=== PATIENT | female | born 1935 | race Caucasian/White ===

== ENCOUNTER 2021-11-06 10:07 | Outpatient (CLI) | payer MEDICARE, SELFPAY ==
[2021-11-06 17:29] LABS: Chloride* 100 mmol/L (96-114); Sodium* 137 mmol/L (135-149)
[2021-11-06 17:32] LABS: Blood Urea Nitrogen* 12 mg/dL (7-30); Carbon Dioxide* 29 mmol/L (20-32); Creatinine* 0.7 mg/dL (0.5-1.5); Estimated Glomerular Filt Rate 86 ml/min
[2021-11-06 17:33] LABS: Glucose* 83 mg/dL (60-115)
== END 2021-11-06 10:08 | disposition home or self-care (01) ==
LOC: LONREF 10:34
PROVIDERS: PCP Family Medicine; Visit Provider Family Medicine
DX: Z01.818 Encounter for other preprocedural examination (principal)
CPT/HCPCS: 80048

== ENCOUNTER 2023-08-19 08:31 | Outpatient (CLI) | payer MEDICARE, BC, SELFPAY | END 2023-08-19 08:32 | disposition home or self-care (01) | LOC: NFLDREF 09-03 11:11 | PROVIDERS: PCP Internal Medicine; Referring Provider Internal Medicine; Visit Provider Internal Medicine | DX: E11.9 Type 2 diabetes mellitus without complications (principal); E78.5 Hyperlipidemia, unspecified; Z79.84 Long term (current) use of oral hypoglycemic drugs | CPT/HCPCS: 80053; 80061; 82043; 82570 ==

== ENCOUNTER 2023-08-28 08:27 | Outpatient (CLI) | payer MEDICARE, BC, SELFPAY | END 2023-08-28 08:28 | disposition home or self-care (01) | LOC: NFLDREF 09-17 10:33 | PROVIDERS: PCP Internal Medicine; Referring Provider Internal Medicine; Visit Provider Internal Medicine | DX: E11.9 Type 2 diabetes mellitus without complications (principal) | CPT/HCPCS: 82043; 82570 ==

== ENCOUNTER 2024-05-11 14:00 | Outpatient (RCR) | payer MEDICARE, BC, SELFPAY ==
--- NOTE | 2023-02-20 16:48 | OT.OPLE ---
OT Outpatient Lymphedema Eval OT Outpatient Lymphedema Eval Start: 02/20/23 10:07 Freq: Status: Active Protocol: Document 02/20/23 13:32 LCN (Rec: 02/20/23 13:54 LCN [id number]) E-signed By Nieves Caballero, OTR/L, CLT OT Outpatient Evaluation Details Type Type Eval Complexity Low OT OP Lymphedema Evaluation Insurance Information Insurance Information Medicare B Current Condition/Medical Diagnosis Referring Provider Dr. Alanna Amaya Treatment Diagnosis Venous Insufficency, B LE lymphedema. Date Of Onset 01/29/23 Other Precautions Has several allergies--avocado , ibuprofen, clavulanic acid, lorazepam, PCN and sulfa abx. Possible latex sensitivity. 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 Both treated with ABX ( October 3 shots, rocephin; just finished 10 day oral course). She is still having deep red color, mild healing warmth from R ankle fold to 2 cm below knee crease. Has open anterior weiner 15 cm wide x 22 cm high area with serous sanguineous drainage that drains into her shoe and is hard to manage. She has done several failed trials of OTC compression stockings ( knee high, zipper stocking both dig in and top margin/trap edema with hard red ring, a compression device off of [facility] that positioned her is a hard 90 degree ankle position) and is living alone with back pain, limiting her ablility to yennifer shoes/socks. Medical History Medical History Obesity,Cellulitis/Infection, Slow Healing Wound,DM Medical History Comments Maternal history of liver disease cirrhosis. Surgical History Surgical History L mastectomy with many lymph nodes removed. Has one remaining lymphedema pocket at L lateral rib cage, does not liit overhead reach. . (No sx in her L UE, hand or forearm). Medications Medications Glipizde, metformin, fluid pills, hydrochlorothiazide, pravastatin. Vit D Nico Mg B6 D3. Family History Family History of Lymphedema No Living Situation Current Living Situation Private Home/Apartment (Alone) Current Living Situation Comments Has two daughters that live locally that will help with some larger cleaning if asked. Otherwise pt is (I) with finances, cooking, driving, bathing. Lower body dressing is hard. Has a neighbor who drove her here today. Patient Difficulties Difficulties With Any Of The Following Walking Patient Difficulties Comments Has been more sedentary this year and is not walking as much, crocheting a lot of baby blankets for friends/family. Gets to her [employer] group every Saturday morning. Exercise History Does Patient Exercise Regularly No Exercise Comments Dr. Amaya requests pt to walk 10 min per hour during linda sessions. Pain Pain Yes Pain Comments lower back/h/o spinal stenosis . Loss of Function/Strength/Mobility Loss Of Function/Strength/Mobility Yes Loss Of Function/Strength/Mobility Stands for 15-20 minutes at a Comments time. Hard to sit on flat table edge. Previous Treatment Previous Treatment For Swelling/ Elevation Lymphedema Compression History Does Patient Currently Wear Compression No During Daytime Does Patient Currently Wear Compression No At Night Current Swelling (Location/Pitting/Texture) Pitting Scale: 0 = No pitting 1+ Tissue returns to normal almost immediately 2+ Tissue returns after 15-30 seconds 3+ Tissue returns after 1-1/2 minutes 4+ Tissue returns after 2-3 minutes N/A Tissue no longer pits due to induration Tissue texture: Soft or indurated Clinical Presentation Area B LE have dense shiny 4+ pitting for entire tibial shafts to toes with deep red color, mild healing warmth from R ankle fold to 2 cm below knee crease. Has open anterior weiner 15 cm wide x 22 cm high area with serous sanguineous drainage that drains into . shoe and is hard to manage the wetness. Lines it with VIVA and some gauze pads but they fall off without compression. Clinical Presentation Pitting R medial thigh has 3+ poitting for medial 1/3 Clinical Presentation Texture Skin is thick with scaley flakes with weeping at anterior R weiner, thick fungal toe nails, fixed creases at ankles and each toe. (+) stemmer's sign. Triggering Event & Start Date of For the past 5 years Swelling/Lymphedema Type of Swelling Secondary Swelling Comments CVI related Staging Staging Stage 3 Positive Stemmer's Sign Yes Circumferential Measurements Lower Extremity Left Lower Extremity Great Toe 9.9 MPT 23.7 Arch 24.3 Calcaneous 35.8 10cm 30 20cm 39.7 30cm 49 40cm 40.8 50cm 49 60cm 54.5 Total 356.7 Right Lower Extremity Great Toe 9.7 MPT 25.4 Arch 25.5 Calcaneous 37.3 10cm 30.8 20cm 38.3 30cm 50.3 40cm 46 50cm 54 60cm 59 Total 376.3 Assessment Assessment Pt with Impaired integrity of skin & lymphedema lead to increased risk infection & skin breakdown.?Pt c/o decreased mobility of BLE d/t bulk of swelling in legs and impaired fit of appropriate footwear. Legs are heavy, hard to feel where feet are, limited standing tolerance, hard to get shoes, socks on safely.?Wound is draining into her R shoe. Impairments Impairments Loss of Mobility,Difficulties With ADLs,Limb Heaviness,Poor Clothing Fit Impairments Comments Poor tolerance of traditional compression stockings. Problem List Problem List Significant Risk For Infection For Lymphedema Related Complications,Does Not Have Appropriate Compression Garments For LT Management, Presents With Impaired Mobility/ROM,Lack Of Caregiver Support Patient Goals Short Term Goals (# of Weeks) 6 Click To Default Short Term Goals Standard Goals Short Term Goals Goal 1: Patient and or caregiver will understand lymphedema precautions to decrease risk of infection and further lymphedema related complications Goal 2: Patient will develop a tolerance for wearing multi-layer, short stretch bandages between treatment sessions to facilitate limb decongestion Goal 3: Patient will experience decreased pitting edema in order to improve tissue health and decrease risk for infection/cellulitis Goal 4: Patient will perform HEP with minimal assistance in order to improve lymphatic flow and venous return Goal 5 : Patient will perform self MLD protocol with minimal assistance to help reduce swelling and improve ROM and mobility Prison Goals (# of Weeks) 12 Click To Default Geospatial Information Scientist Goals Standard Goals Prison Goals Goal 1: Patient and/or caregiver will be independent with short-stretch compression bandaging for continued volume reduction and prevention of recurrence Goal 2: Patient will experience increased ROM and mobility in order to improve safety and independence with transfers and mobility Goal 3: Patient will be independent with donning and doffing of compression garments which will enable regular daily garment wear Goal 4: Patient will achieve a specific reduction of 15cm from total measurements for each LE to enable functional improvements such as fitting into standard sized clothing and shoes, return to a prior level of functional mobility, improved balance, and reduced risk of falling. Goal 5: Patient and/ or caregiver will be independent with HEP and lymphedema management to reduce risk for edema relapse and to reduce risk for infection Treatment Plan Treatment Plan Evaluation,Edema Control, Manual Therapy,Therapeutic Exercise,Self-Care/Home Management,Education Expected Frequency 1-2x Week Expected Duration 8-10 Weeks Certification Certification I Certify That: Therapy Services Provided, Therapy Plan Established, Therapy Plan Reviewed Recertification Information Recertification Information Initial Certification Date 02/20/23 Recertification Due Date 05/21/23 Provider Signature Shows Agreement With POC & Medical Necessity Physician Comment/Change Comment or Changes Physician NPI Number #
--- NOTE | 2023-07-29 08:23 | OT.OPLDN ---
OT Outpatient Lymphedema Daily Note OT Outpatient Lymphedema Daily Note Start: 02/20/23 10:07 Freq: Status: Active Protocol: Document 07/22/23 11:46 LCN (Rec: 07/22/23 12:01 BESSIE [id number]) E-signed By Nieves Caballero, OTR/L, CLT OT OP Lymphedema Daily/Progress Note Note Type Note Type Daily Visit Number [id number] Insurance Information Insurance Information Medicare B Current Condition/Medical Diagnosis Referring Provider Dr. Alanna Amaya Treatment Diagnosis Venous Insufficency, B LE lymphedema. Date Of Onset 01/29/23 Other Precautions Has several allergies--avocado , ibuprofen, clavulanic acid, lorazepam, PCN and sulfa abx. Possible latex sensitivity. Medical Contraindications DM,HTN,CA Subjective Subjective Grand daughter is present to learn correct wrapping, wound mgmt strategies as pt's neighbor not as able to help right now. Pt still having irritation of R LE ( bathing, large flake brown scaling with waxy texture, red irritating raised 2/3 of shins, Wondering if she has developed sensitivity to Eucerin, if it is stuck in her liner tetragrip layers.) Still using diaper layer around R ankle to catch scant dots of serous drainage. Really likes the It Stays Glue for R foot. Liner stockings pulling on her second toes. Has been hard to wear shoes, has tried stretching them. Reluctant to got to [facility]. Has been cut by RN there and with [facility] service. Sees her primary next month for annual check up . Rochelle Hammond is a vibrant 87 y/o female who struggles with venous, B LE lymphedema over the past 5 years and has now had 2nd bout of cellulitis last month, first was in October. Both treated with ABX ( October 3 shots, rocephin; just finished 10 day oral course). She is still having deep red color, mild healing warmth from R ankle fold to 2 cm below knee crease. Has open anterior weiner 15 cm wide x 22 cm high area with serous sanguineous drainage that drains into her shoe and is hard to manage. She has done several failed trials of OTC compression stockings ( knee high, zipper stocking both dig in and top margin/trap edema with hard red ring, a compression device off of [employer] that positioned her is a hard 90 degree ankle position) and is living alone with back pain, limiting her ablility to yennifer shoes/socks. Circumferential Measurements Lower Extremity Left Lower Extremity Great Toe 8.4 MPT 22.2 Arch 21.4 Calcaneous 31.3 10cm 23.5 20cm 29.5 30cm 38 40cm 39 50cm 46 60cm 51 Total 310.3 Right Lower Extremity Great Toe 8.8 MPT 23 Arch 22.5 Calcaneous 32.5 10cm 24 20cm 31.0 30cm 40.0 40cm 36.5 50cm 50.4 60cm 54.5 Total 323.2 Treatment Manual Therapy OTR remeasures girth; completes MLD sequence (as needed for increased tissue mobility, ROM and decreased lymph girth) with LN facilitation at TDL, terminus, suboccipital to SCM lines, with lymph sweeping distal to proximal x 5-7 strokes each plane, with 2-3 sets at congested areas. Cont LN facilitation at abd with diaphragmatic breath, 4 abd quadrants, beltline, lateral trunk and ING > AX?to support watershed flow. Segmental decongestive MLD at lateral hip,?lateral thigh bundles, middle thigh, TFL to lateral trunk and calf in 3 segments, foot and ankle areas with toe web space facilitation, x 10 reps each area. MFR to spongy edema at lateral thigh, hip areas. Finishing lymph sweep from distal LE to proximal? trunk, AX and TN areas. OTR trains pt's grand daughter verbally on one leg and has bennie return demonstration for the other LE, does well with return. Adjusted strap tension and instructed self monitoring of strap tension eveness. Applied pt's Renew lotion to B LE's. Dressed R weiner w diaper pad over lower ankle cuff. Therapist applied size H tetragrip for BLE, folded up at ankle/double layer to mid weiner. Cont tetragrip size f to dorsal foot, u to below knee much better contour/comfort for the pt. Used 10-15 MmmHG liners L w velcro wrap for BLE . It stays glue at base of R toes. Added thin foam strip to protect weiner margin as she loses girth further. Manual Therapy Minutes (minutes) 62 Recommended Medical Equipment Sigvaris Med Tall Blow knee Velcro compression wraps for B LE with 10-15 mmHG liner socks. 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 Planning to decrease frequency to 2x/month now for next 6-8 weeks. Working on strategies for being more (I) with compression mgmt. Pt with Impaired integrity of skin & lymphedema lead to increased risk infection & skin breakdown.?Pt c/o decreased mobility of BLE d/t bulk of swelling in legs and impaired fit of appropriate footwear. Legs are heavy, hard to feel where feet are, limited standing tolerance, hard to get shoes, socks on safely.?Wound is draining into her R shoe. Impairments Loss of Mobility,Difficulties With ADLs,Limb Heaviness,Poor Clothing Fit Impairments Comments Poor tolerance of traditional compression stockings. Problem List Significant Risk For Infection For Lymphedema Related Complications,Does Not Have Appropriate Compression Garments For LT Management, Presents With Impaired Mobility/ROM,Lack Of Caregiver Support Patient Goals Short Term Goals (# of Weeks) 6 Short Term Goals Goal 1: Patient and or caregiver will understand lymphedema precautions to decrease risk of infection and further lymphedema related complications Goal 2: Patient will develop a tolerance for wearing multi-layer, short stretch bandages between treatment sessions to facilitate limb decongestion Goal 3: Patient will experience decreased pitting edema in order to improve tissue health and decrease risk for infection/cellulitis Goal 4: Patient will perform HEP with minimal assistance in order to improve lymphatic flow and venous return Goal 5 : Patient will perform self MLD protocol with minimal assistance to help reduce swelling and improve ROM and mobility Motorcycle Tester Goals (# of Weeks) 12 Detention Goals Goal 1: Patient and/or caregiver will be independent with short-stretch compression bandaging for continued volume reduction and prevention of recurrence Goal 2: Patient will experience increased ROM and mobility in order to improve safety and independence with transfers and mobility Goal 3: Patient will be independent with donning and doffing of compression garments which will enable regular daily garment wear Goal 4: Patient will achieve a specific reduction of 15cm from total measurements for each LE to enable functional improvements such as fitting into standard sized clothing and shoes, return to a prior level of functional mobility, improved balance, and reduced risk of falling. Goal 5: Patient and/ or caregiver will be independent with HEP and lymphedema management to reduce risk for edema relapse and to reduce risk for infection Treatment Plan Treatment Plan Evaluation,Edema Control, Manual Therapy,Therapeutic Exercise,Self-Care/Home Management,Education Expected Frequency 1-2x Week Expected Duration 8-10 Weeks Treatment Minutes Timed Treatment Minutes 62 Total Timed Treatment Minutes 62 Occupational Therapy Billing Units Billing Units Manual Therapy 4
--- NOTE | 2023-08-29 11:37 | OT.OPLDN ---
OT Outpatient Lymphedema Daily Note OT Outpatient Lymphedema Daily Note Start: 02/20/23 10:07 Freq: Status: Active Protocol: Document 08/28/23 11:30 LCN (Rec: 08/28/23 11:45 LCN [id number]) E-signed By Nieves Caballero, OTR/L, CLT OT OP Lymphedema Daily/Progress Note Note Type Note Type Daily,Note To MD,Recert/ Progress Note Visit Number [id number] Insurance Information Insurance Information Medicare B Current Condition/Medical Diagnosis Referring Provider Dr. Alanna Amaya Treatment Diagnosis Venous Insufficency, B LE lymphedema. Date Of Onset 01/29/23 Other Precautions Has several allergies--avocado , ibuprofen, clavulanic acid, lorazepam, PCN and sulfa abx. Possible latex sensitivity. Medical Contraindications DM,HTN,CA Subjective Subjective Pt came to OT alone today. Granddaughter still doing daily dressing and compression changes. APpt with her PCP went well, A1c down to 5.9 and BP 128/60. Pt still having reduced irritation of R LE now using Benadryl topically on pink areas, and her Renew cream for all other areas below knees. Scaling heat and redness continue to reduce nicely. Having foam strips at shins also very helpful. Still using diaper layer around R ankle to catch scant dots of serous drainage at R medial ankle. Rochelle Hammond is a vibrant 87 y/o female who struggles with venous, B LE lymphedema over the past 5 years and has now had 2nd bout of cellulitis last month, first was in October. Both treated with ABX ( October 3 shots, rocephin; just finished 10 day oral course). She is still having deep red color, mild healing warmth from R ankle fold to 2 cm below knee crease. Has open anterior weiner 15 cm wide x 22 cm high area with serous sanguineous drainage that drains into her shoe and is hard to manage. She has done several failed trials of OTC compression stockings ( knee high, zipper stocking both dig in and top margin/trap edema with hard red ring, a compression device off of [employer] that positioned her is a hard 90 degree ankle position) and is living alone with back pain, limiting her ablility to yennifer shoes/socks. Circumferential Measurements Lower Extremity Left Lower Extremity Great Toe 8.4 MPT 22.2 Arch 21.4 Calcaneous 31.3 10cm 23.5 20cm 29.5 30cm 38 40cm 39 50cm 46 60cm 51 Total 310.3 Right Lower Extremity Great Toe 8.8 MPT 23 Arch 22.5 Calcaneous 32.5 10cm 24 20cm 31.0 30cm 40.0 40cm 36.5 50cm 50.4 60cm 54.5 Total 323.2 Treatment Manual Therapy OTR completes MLD sequence ( as needed for increased tissue mobility, ROM and decreased lymph girth) with LN facilitation at TDL, terminus, suboccipital to SCM lines, with lymph sweeping distal to proximal x 5-7 strokes each plane, with 2-3 sets at congested areas. Cont LN facilitation at abd with diaphragmatic breath, 4 abd quadrants, beltline, lateral trunk and ING > AX?to support watershed flow. Segmental decongestive MLD at lateral hip,?lateral thigh bundles, middle thigh, TFL to lateral trunk and calf in 3 segments, foot and ankle areas with toe web space facilitation, x 10 reps each area. MFR to spongy medial knee areas. Applied pt 's Renew lotion to B LE's, benadryl cream to medium pink/ neutral warm areas. Dressed R weiner w diaper pad over lower ankle cuff. Therapist applied size H tetragrip for BLE, folded up at ankle/double layer to mid weiner. Cont tetragrip size f to dorsal foot, u to below knee much better contour/comfort for the pt. Used 10-15 MmHG liners L w velcro wrap for BLE . It stays glue at base of R toes. Cont thin foam strip to protect weiner margin as she loses girth further. Manual Therapy Minutes (minutes) 50 Self Care Added use of small tube style sock aide and dressing stick to apply /remove liner stocking. Pt able to return demo using equipment. Velcro wraps lower strap blocking machine tender added B. Issued information to order AE via [employer], pt preference. Self Care Activity Minutes (minutes) 12 Recommended Medical Equipment Sigvaris Med Tall Blow knee Velcro compression wraps for B LE with 10-15 mmHG liner socks. 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 Planning to decrease frequency to 2x/month now for next 6-8 weeks. Working on strategies for being more (I) with compression mgmt. Pt with Impaired integrity of skin & lymphedema lead to increased risk infection & skin breakdown.?Pt c/o decreased mobility of BLE d/t bulk of swelling in legs and impaired fit of appropriate footwear. Legs are heavy, hard to feel where feet are, limited standing tolerance, hard to get shoes, socks on safely.?Wound is draining into her R shoe. Impairments Loss of Mobility,Difficulties With ADLs,Limb Heaviness,Poor Clothing Fit Impairments Comments Poor tolerance of traditional compression stockings. Problem List Significant Risk For Infection For Lymphedema Related Complications,Does Not Have Appropriate Compression Garments For LT Management, Presents With Impaired Mobility/ROM,Lack Of Caregiver Support Patient Goals Short Term Goals (# of Weeks) 6 Short Term Goals Goal 1: Patient and or caregiver will understand lymphedema precautions to decrease risk of infection and further lymphedema related complications Goal 2: Patient will develop a tolerance for wearing multi-layer, short stretch bandages between treatment sessions to facilitate limb decongestion Goal 3: Patient will experience decreased pitting edema in order to improve tissue health and decrease risk for infection/cellulitis Goal 4: Patient will perform HEP with minimal assistance in order to improve lymphatic flow and venous return Goal 5 : Patient will perform self MLD protocol with minimal assistance to help reduce swelling and improve ROM and mobility Short Term Goals Comments BROOKS GOLAS MET 08/28/23 Harbormaster Goals (# of Weeks) 12 Harbormaster Goals Goal 1: Patient and/or caregiver will be independent with short-stretch compression bandaging for continued volume reduction and prevention of recurrence PROGRESS-- Granddaughter helping with dressings/ compression changes daily. Adding adaptive equipment for pt (I) as next portion of goal . Goal 2: Patient will experience increased ROM and mobility in order to improve safety and independence with transfers and mobility 08/28/23 PROGRESS-- GOAL MET Goal 3: Patient will be independent with donning and doffing of compression garments which will enable regular daily garment wear PROGRESS-- Goal continued, working on adaptive equipment use Goal 4: Patient will achieve a specific reduction of 15cm from total measurements for each LE to enable functional improvements such as fitting into standard sized clothing and shoes, return to a prior level of functional mobility, improved balance, and reduced risk of falling. 08/28/23 PROGRESS-- Since inital eval 03/02/23 L LE total has reduced by 46.5 cm and R LE reduced by 53.1 cm. Skin integrity of R LE continues to improve, but still having dermatitis/pink/redness, microflaking for entire R weiner . Scant drainage on medial ankle dressing ( had been circumferential wound at start of OT) Goal 5: Patient and/or caregiver will be independent with HEP and lymphedema management to reduce risk for edema relapse and to reduce risk for infection Treatment Plan Treatment Plan Evaluation,Edema Control, Manual Therapy,Therapeutic Exercise,Self-Care/Home Management,Education Expected Frequency 1-2x Week Expected Duration 8-10 Weeks Treatment Minutes Timed Treatment Minutes 62 Total Timed Treatment Minutes 62 Occupational Therapy Billing Units Billing Units Manual Therapy 3 Self Care/Home Management 1 Recertification Information Recertification Information Initial Certification Date 02/20/23 Recertification Start Date 08/28/23 Recertification Due Date 11/26/23 Reasons to Continue Skilled Therapy Moving towards (I) with donning compression using adaptive equipment and resolved skin integrity issues of R LE. Continued Plan of Care and Interventions Per goals/progress above Provider Signature Shows Agreement With POC & Medical Necessity Physician Comment/Change Comment or Changes Physician NPI Number #
--- NOTE | 2023-12-11 12:30 | OT.OPLDN ---
OT Outpatient Lymphedema Daily Note OT Outpatient Lymphedema Daily Note Start: 02/20/23 10:07 Freq: Status: Active Protocol: Document 12/11/23 11:57 LCN (Rec: 12/11/23 12:26 LCN [id number]) E-signed By Nieves Caballero, OTR/L, CLT OT OP Lymphedema Daily/Progress Note Note Type Note Type Daily Visit Number [id number] Insurance Information Insurance Information Medicare B Current Condition/Medical Diagnosis Referring Provider Dr. Alanna Amaya Treatment Diagnosis Venous Insufficency, B LE lymphedema. Date Of Onset 01/29/23 Other Precautions Has several allergies--avocado , ibuprofen, clavulanic acid, lorazepam, PCN and sulfa abx. Possible latex sensitivity. Medical Contraindications DM,HTN,CA Subjective Subjective Pt not sure about adding pump to her HEP. Needing new compression wraps, velcro starting not to stick. Trial of 20-30mmHG open toe OTC stockings for wedding were too tight, hurt her skin to yennifer, was able to manage them for one day, but legs are more congested this week. Redness, mild warmth, rough texture, hyper plasia for upper 3/4 of R weiner. P R ankle dressing change 16 hours ago, with scant scattered areas of serous drainage in 8x10 cm area, patchy epithelization, no longer taping the dressing in place. using Tetragrip to hold in place. Rochelle Hammond is a vibrant 87 y/o female who struggles with venous, B LE lymphedema over the past 5 years and has now had 2nd bout of cellulitis last month, first was in October. Both treated with ABX ( October 3 shots, rocephin; just finished 10 day oral course). She is still having deep red color, mild healing warmth from R ankle fold to 2 cm below knee crease. Has open anterior weiner 15 cm wide x 22 cm high area with serous sanguineous drainage that drains into her shoe and is hard to manage. She has done several failed trials of OTC compression stockings ( knee high, zipper stocking both dig in and top margin/trap edema with hard red ring, a compression device off of [employer] that positioned her is a hard 90 degree ankle position) and is living alone with back pain, limiting her ablility to yennifer shoes/socks. Circumferential Measurements Lower Extremity Left Lower Extremity Great Toe 8.4 MPT 22.2 Arch 21.4 Calcaneous 31.3 10cm 23.5 20cm 29.5 30cm 38 40cm 39 50cm 46 60cm 51 Total 310.3 Right Lower Extremity Great Toe 9.3 MPT 23 Arch 23 Calcaneous 32 10cm 25 20cm 30.5 30cm 38 40cm 37.3 50cm 50.0 60cm 56.0 Total 324.1 Treatment Manual Therapy OTR completes MLD sequence ( as needed for increased tissue mobility, ROM and decreased lymph girth) with LN facilitation at TDL, terminus, suboccipital to SCM lines, with lymph sweeping distal to proximal x 5-7 strokes each plane, with 2-3 sets at congested areas. Cont LN facilitation at abd with diaphragmatic breath, 4 abd quadrants, beltline, lateral trunk and ING > AX?to support watershed flow. Segmental decongestive MLD at lateral hip,?lateral thigh bundles, middle thigh, TFL to lateral trunk and calf in 3 segments, foot and ankle areas with toe web space facilitation, x 10 reps each area. MFR to spongy medial knee areas. Applied pt 's Renew lotion to B LE's, benadryl cream to R ankle to below knee medium pink/neutral warm areas. Brief trial of 3XL OTC 20-30 open toe black below knee stocking over the L leg, more comfortable but will not contain the stage 3 lymphedema she has (Use OTC only for short family functions/dress up) . Velcro wraps and Tetragrip H, ankle to knee and tetragrip F for footanke over the dressing at malleolus. Comfortable after session. Manual Therapy Minutes (minutes) 64 Recommended Medical Equipment Compression Planning for Upgrades 11/25/23-- considering custom flat knits ( R thigh high and L knee high) with antimicrobial, wicking layer for day plan and velcro wrap for night plan. Consider adding pump at another point. [facility] Tall Blow knee Velcro compression wraps for B LE with 10-15 mmHG liner socks. 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 For the past 4+ months, pt continues with good compliance for elevating feet 2 hours per day,daily compression wear of wrap layers, with dressing changes and completes her self massage and pumping exercise routine 1-2 x/day. Despite this, she has continued skin changes hyper plasia, dry flaking skin thin intermittent lymphorrhea, redness and mild healing wearm , extremely sensitive to changes of cream or diet/ stopping tomtoesand night shades. Planning to decrease frequency to 2x/month now for next 6-8 weeks. Working on strategies for being more (I) with compression mgmt. Pt with Impaired integrity of skin & lymphedema lead to increased risk infection & skin breakdown.?Pt c/o decreased mobility of BLE d/t bulk of swelling in legs and impaired fit of appropriate footwear. Legs are heavy, hard to feel where feet are, limited standing tolerance, hard to get shoes, socks on safely.?Wound is draining into her R shoe. Impairments Loss of Mobility,Difficulties With ADLs,Limb Heaviness,Poor Clothing Fit Impairments Comments Poor tolerance of traditional compression stockings. Problem List Significant Risk For Infection For Lymphedema Related Complications,Does Not Have Appropriate Compression Garments For LT Management, Presents With Impaired Mobility/ROM,Lack Of Caregiver Support Patient Goals Short Term Goals (# of Weeks) 6 Short Term Goals Goal 1: Patient and or caregiver will understand lymphedema precautions to decrease risk of infection and further lymphedema related complications Goal 2: Patient will develop a tolerance for wearing multi-layer, short stretch bandages between treatment sessions to facilitate limb decongestion Goal 3: Patient will experience decreased pitting edema in order to improve tissue health and decrease risk for infection/cellulitis Goal 4: Patient will perform HEP with minimal assistance in order to improve lymphatic flow and venous return Goal 5 : Patient will perform self MLD protocol with minimal assistance to help reduce swelling and improve ROM and mobility Short Term Goals Comments BROOKS PUGA MET 08/28/23 Fpc Goals (# of Weeks) 12 Fpc Goals Goal 1: Patient and/or caregiver will be independent with short-stretch compression bandaging for continued volume reduction and prevention of recurrence PROGRESS-- Granddaughter, friend helping with dressings /compression changes daily. Adding adaptive equipment for pt (I) as next portion of goal . Goal 2: Patient will experience increased ROM and mobility in order to improve safety and independence with transfers and mobility 08/28/23 PROGRESS-- GOAL MET Goal 3: Patient will be independent with donning and doffing of compression garments which will enable regular daily garment wear PROGRESS-- Goal continued, working on adaptive equipment use and weaning down to more manageable compression layers as able ( considering custom flat knits with antimicrobial, wicking layer for day plan and velcro wrap for night plan. Goal 4: Patient will achieve a specific reduction of 15cm from total measurements for each LE to enable functional improvements such as fitting into standard sized clothing and shoes, return to a prior level of functional mobility, improved balance, and reduced risk of falling. 11/24 PROGRESS-- Since initial eval 03/02/23 L LE total has reduced by 46.5 cm and R LE reduced by 52.1 cm. Skin integrity of R LE continues to improve, but still having dermatitis/pink/redness, microflaking for entire R weiner . Scant drainage on medial ankle dressing ( had been circumferential wound at start of OT) Goal 5: Patient and/or caregiver will be independent with HEP and lymphedema management to reduce risk for edema relapse and to reduce risk for infection 11/25/23-- Continued for updates as pt progresses, progressing complression layers and considering a pump when pt feels ready. Treatment Plan Treatment Plan Evaluation,Edema Control, Manual Therapy,Therapeutic Exercise,Self-Care/Home Management,Education Expected Frequency 1-2x Week Expected Duration 8-10 Weeks Treatment Minutes Timed Treatment Minutes 62 Total Timed Treatment Minutes 62 Occupational Therapy Billing Units Billing Units Manual Therapy 4 Recertification Information PLEASE SIGN AND FAX RETURN. Thank you!! Nieves Smith OT Recertification Information Initial Certification Date 02/20/23 Recertification Start Date 11/25/23 Recertification Due Date 02/24/24 Reasons to Continue Skilled Therapy Moving towards (I) with donning compression, progressing compression plan, using adaptive equipment and resolved skin integrity, skin hypersensitivity issues of R LE. Continued Plan of Care and Interventions Per goals/progress above Provider Signature Shows Agreement With POC & Medical Necessity Physician Comment/Change Comment or Changes Physician NPI Number #
--- OUTSIDE RECORDS SUMMARY | 2024-03-30 12:29 | XMS_ITS | Data Portability ---
Author Organization [place] - [facility], [employer] Address [address] [facility] [place] [address] Assessment Encounter Date Assessment Date Assessment LastModified by Organization Details LastModified Time 01/06/2024 01/06/2024 Educated patient on proper diabetic foot care including daily hygiene, proper shoegear inside and outside the house, applying lotion to bilateral feet with the avoidance of the webspaces, daily foot inspections, and tight glycemic control. I discussed with the patient the difficulty of treating toenail fungus and the limited efficacy of topical antifungals. I recommended continuing with Vicks Vapor Rub as a home remedy, acknowledging that it requires consistent application over a long period. Nails and calluses debrided without incident as documented. I advised the patient to continue their current treatment regimen with Nieves, the MPT. I also recommended the use of extra depth shoes to accommodate the lymphedema and provided catalogs for selection. I informed the patient that the process for obtaining the shoes would take approximately three to four weeks. Patients foot was evaluated and measured for diabetic shoes with custom diabetic orthosis . The appropriate style and size was selected and a certificate of medical necessity was completed. The patient was deemed to be eligible for diabetic footwear and insoles due to the fact that the patient clearly meets the criteria set forth by CMS. The patient has diabetes with neuropathy, deformity, PVD. This patient is at significant risk for ulceration. This was discussed with patient in detail and all questions were answered. Custom diabetic orthosis were chosen over heat molded due to the patients deformity and the need for the best accommodation. Not available 01/06/2024 20:40:48 02/24/2024 02/24/2024 Discussed medical conditions with patient today. For onychomycosis, I recommended the patient continue using Vicks VapoRub but avoid jamming or pushing it underneath the cuticle. I suggested using a pumice stone or a nail file to manage the thickness of the toenails safely. I advised against using a Dremel tool due to the risk of injury, especially with diabetes. I did dispense one pair diabetic shoes and a 3 pair of custom multi-density diabetic insoles. The insoles did conform well to the longitudinal arches. The shoes and insoles are both in good condition with no visible defects. They did fit well in both length and width. The patient did ambulate comfortably in the shoes prior to leaving clinic. The patient was instructed on proper break-in and use of the shoes. A break in instruction form was discussed and dispensed to the patient. The patient is to return to clinic for followup evaluation in one to 2-3 months or sooner if any problems. Patient did mention that she is not currently wearing her lymphangitis compression stockings which can add girth to her foot and may change shoe fit. I instructed the patient to monitor their feet closely after putting on the new shoes to ensure there is no rubbing or irritation. I acknowledged the patient's need for compression stockings and the difficulty in fitting shoes with the dressings. I suggested that if the current shoes feel too tight, they could be exchanged for a wider pair, but they must not be worn outside to be eligible for exchange. I scheduled a follow-up appointment in three weeks to reassess the fit of the shoes and ensure they are working well with the patient's dressings. Patient verbalized understanding and is in agreement with the above treatment plan. Not available 02/25/2024 12:06:03 03/16/2024 03/16/2024 Discussed medical conditions with patient today. For diabetic shoegear, I discussed the importance of proper footwear and agreed to exchange the current shoes for a size 11 with extra, extra wide width. I also suggested trying an open tongue style shoe for better fit and comfort. I planned to thin out the inserts to reduce the profile and improve comfort. I also scheduled a follow-up appointment for April 06 to check the patient's nails and overall foot health. For lower extremity edema, I advised the patient to continue using compression wraps and socks as prescribed. I recommended elevating the legs when possible and monitoring for any signs of increased swelling or discomfort. Patient verbalized understanding and is in agreement with the above treatment plan. Not available 03/16/2024 14:52:05 Plan of Treatment Reminders Order Date Submit Date Provider Last Modified By Organization Details Last Modified Time Details Appointments None record ed. Lab None record ed. Referral None record ed. Procedures None record ed. Surgeries None record ed. Imaging None record ed. Medication Orders None record ed. Patient TargetsNo targets recorded. Patient InstructionsNo instructions recorded. Reason for Referral None Reported. Problems Name Problem SNOMED Code Status Onset Date Resolution Date Notes Provider Name and Address Organization Details Recorded Time Diabetic care Active [address] Marilyn Amaya 08/26/23 Kylie Jessica null, [place] - [facility] 10:14:45 Problem Notes None recorded. Procedures Surgical History Date Name Laterality Status Provider Name and Address Organization Details Recorded Time 01/06/2024 NAIL/Callu sDEBRIDEME NT completed GEORGIANA REESE, DPM [address] [place], [address], [facility] 01/06/2024 20:38:14 Imaging Results None recorded. Procedure Notes None recorded. Medical Equipment None Reported. Allergies Allergen ID Allergen Name Allergen Category Reaction Reaction Severity Criticality Documentation Date Start Date Code Code System Note Provider Name and Address Organization Details Recorded Time avocado allergeni c extract food Not available Not available Not available 01/16/2024 76059 2 RxNorm Kylie Jessica null, [place] - [facility] 11:06:32 35735 ibuprofen medicatio n Not available Not available Not available 01/16/2024 5640 RxNorm Kylie Jessica null, [place] - [facility] 11:06:41 14211 clavulani c acid Not available Not available Not available Not available 01/16/2024 11399 RxNorm Kylie Jessica null, [place] - [facility] 11:06:49 00126 doxycycli ne Not available Not available Not available Not available 01/16/2024 3640 RxNorm Kylie Jessica null, [place] - [facility] 11:06:58 37179 lorazepam medicatio n Not available Not available Not available 01/16/2024 6470 RxNorm Kylie Jessica null, [place] - [facility] 11:07:07 30047 morphine medicatio n Not available Not available Not available 01/16/2024 7052 RxNorm Kylie Lopez null, [place] - [facility] 11:07:15 11896 Medicinal product containin g penicilli n and acting as antibacte rial agent (product) medicatio n Not available Not available Not available 01/16/2024 46001 05 SNOMED Kylie Lopez null, [place] - [facility] 11:07:22 Medications Name Sig Start Date Stop Date Status Note LastModified by Organization Details LastModified Time glipizide 10 mg tablet TAKE ONE TABLET BY MOUTH ONE TIME DAILY* 01/15 completed Not Available Not Available Not Available amlodipine 5 mg tablet TAKE ONE TABLET BY MOUTH ONE TIME DAILY* active Not Available Not Available No t Available cephalexin 500 mg capsule TAKE ONE CAPSULE BY MOUTH THREE TIMES DAILY FOR 10 DAYS* 01/15 completed Not Available Not Available Not Available pravastatin 20 mg tablet TAKE ONE TABLET BY MOUTH ONE TIME DAILY AT BEDTIME* active Not Available Not Available No t Available hydrochlorot hiazide 25 mg tablet TAKE ONE TABLET BY MOUTH ONE TIME DAILY* active Not Available Not Available No t Available lisinopril 40 mg tablet TAKE ONE TABLET BY MOUTH ONE TIME DAILY* active Not Available Not Available No t Available glipizide 5 mg tablet TAKE ONE TABLET BY MOUTH EVERY DAY IN THE MORNING. * active Not Available Not Available No t Available metformin ER 750 mg tablet,exten ded release 24 hr TAKE ONE TABLET BY MOUTH TWICE DAILY* active Not Available Not Available No t Available aspirin active Not Available Not Avail able Not Available carboxymethy lcellulose sodium active Not Available Not Available Not Available multivitamin active Not Available Not Available Not Available nfor-N0-tpkf sm-F1-Kk-Cu- brett active Not Available Not Available Not Available Vitals Date Recorded Body height Body mass index (BMI) Body weight Provider Name and Address Organization Details Last Updated DateTime 01/06/2024 165.1 cm 35.1 kg/m2 69632.99 g Kylie Lopez [place] - [facility] 01/16/2024 11:06:20 Social History None recorded. Functional Status None recorded. Mental Status None recorded. Family History Nothing Reported. Medical History No medical history recorded. Gynecological HistoryNo gynecological history recorded. Obstetrics History GPAL:G 0 P 0 0 0 0 Past Encounters Encounter ID Performer Location Encounter Start Date Encounter Closed Date Diagnosis/Indication Diagnosis SNOMED-CT Code Diagnosis ICD10 Code [id number] GEORGIANA ANTONIA REESE Colinpamela d [address] [place] [address] 01/06/2024 09:57:06 01/07/2024 09:31:18 Onychomycosis 937119926 B35.1 Pain of to e of left foot 4670477726 88391 M79.675 Pain of to e of right foot 8127527647 50207 M79.674 Peripheral vascular disease 525041519 I73.89 Peripheral neuropathy due to type 2 diabetes mellitus 7363216296 107 E11.42 Lymphedema of bilateral lower limbs 0630312253 5518077 I89.0 [id number] ANTONIA CASTRO d [address] [place] [address] 02/24/2024 11:37:41 02/25/2024 15:21:46 Onychomycosis 718931328 B35.1 Pain of to e of left foot 5910679530 12870 M79.675 Pain of to e of right foot 7755769014 31797 M79.674 Peripheral vascular disease 314479013 I73.89 Peripheral neuropathy due to type 2 diabetes mellitus 9916495016 107 E11.42 Lymphedema of bilateral lower limbs 9923924721 1118296 I89.0 [id number] GEORGIANA ANTONIA REESE [facility] d [address] [place] [address] 03/16/2024 12:03:11 03/17/2024 11:16:46 Onychomycosis 523730082 B35.1 Pain of to e of left foot 3248481342 84649 M79.675 Pain of to e of right foot 8464070637 31524 M79.674 Peripheral vascular disease 452372188 I73.89 Peripheral neuropathy due to type 2 diabetes mellitus 8961205260 107 E11.42 Lymphedema of bilateral lower limbs 8188898324 6556829 I89.0 Health Concerns Section Related Observation LastModified by Organization Detai ls LastModified Time None Recorded Concern Status LastModified by Organization Details LastModified Time None Recorded Advance Directives Directive None Recorded Payers Encounter Date Sequence Insurance Name Policy Number Policy Mckay Covered Member ID Mckay Member ID Guarantor Name 01/06/2024 1 [place] [id number] Rochelle Manish [id number] Rochelle Manish 02/24/2024 1 [place] [id number] Rochelle Manish [id number] Rochelle Manish 02/24/2024 1 [place] Rochelle L Manish [id number] Rochelle Manish 03/16/2024 1 [place] (MEDICARE REPLACEMENT HMO) [id number] Rochelle Manish [id number] Rochelle Manish Notes Date Note Type Note Provider Name and Address Organization Details Recorded Time 01/06/2024 text/html The patient presents with difficulty managing their toenails and calluses due to lymphedema. She states that the nails become painful when they get long. They report being treated for lymphedema by gemma Pickett, under the supervision of Dr. Donnelly. The patient has a history of type 2 diabetes with a recent A1C level of 8.2 as of November 25, 2023. They also report occasional burning and tingling sensations on the bottom of their feet and have multiple calluses. They have not had any open sores on their feet but have experienced cellulitis in the past. The patient is allergic to latex and certain spicy foods, which cause redness and itching. They have been advised against soaking their feet due to diabetes and hypertension. Patient last seen by PCP, Dr. Donnelly in August of 2023. GEORGIANA REESE DPM [address] [place], [address], [facility] - [facility] 01/06/2024 20:42:31 02/24/2024 text/html The patient presents today for a diabetic shoe dispense. The patient mentions that the right big toe cuticle is particularly bothersome and painful, and they have a history of thickened toenails that sometimes get stuck on socks. The patient also reports that they have been using Vicks VapoRub on the cuticle and pushing it underneath, which has not alleviated the discomfort. PRIOR HISTORY:The patient presents with difficulty managing their toenails and calluses due to lymphedema. She states that the nails become painful when they get long. They report being treated for lymphedema by gemma Pickett, under the supervision of Dr. Donnelly. The patient has a history of type 2 diabetes with a recent A1C level of 8.2 as of November 25, 2023. They also report occasional burning and tingling sensations on the bottom of their feet and have multiple calluses. They have not had any open sores on their feet but have experienced cellulitis in the past. The patient is allergic to latex and certain spicy foods, which cause redness and itching. They have been advised against soaking their feet due to diabetes and hypertension. Patient last seen by PCP, Dr. Donnelly in August of 2023. GEORGIANA REESE DPM [address] [place], [address], [facility] - [facility] 02/25/2024 12:11:52 03/16/2024 text/html The patient presents today for a follow-up regarding recently dispensed diabetic shoe gear, onychomycosis, and lower extremity edema. The patient reports that the diabetic shoes are too small, too short, and not wide enough. The patient has not been wearing the prescribed shoes due to discomfort and difficulty putting them on. The patient also notes that they have difficulty bending over to fasten Velcro straps and often require assistance to put on shoes. The patient describes a history of wearing Meenu style shoes due to the inability to fit into other shoes and mentions that previous shoes were worn out. The patient expresses a need for comfortable, [id number]-id-dhwb shoes that do not require bending over to adjust. PRIOR HISTORY:The patient presents with difficulty managing their toenails and calluses due to lymphedema. She states that the nails become painful when they get long. They report being treated for lymphedema by gemma iPckett, under the supervision of Dr. Donnelly. The patient has a history of type 2 diabetes with a recent A1C level of 8.2 as of November 25, 2023. They also report occasional burning and tingling sensations on the bottom of their feet and have multiple calluses. They have not had any open sores on their feet but have experienced cellulitis in the past. The patient is allergic to latex and certain spicy foods, which cause redness and itching. They have been advised against soaking their feet due to diabetes and hypertension. Patient last seen by PCP, Dr. Donnelly in August of 2023. GEORGIANA REESE DPM [address] [place], [address], [facility] - [facility] 03/16/2024 14:52:31 OBGyn Episode No OBEpisode recorded.
--- OUTSIDE RECORDS SUMMARY | 2024-03-30 12:29 | XMS_ITS | Continuity of Care Document ---
Author Organization [place] - [facility], [place] Address [address] [facility] [place] [address] Assessment Encounter Date Assessment Date Assessment LastModified by Organization Details LastModified Time 02/24/2024 02/24/2024 Discussed medical conditions with patient [...] in agreement with the above treatment plan. [email or web address] Not available 02/25/2024 12:06:03 Plan of Treatment Reminders Order Date Submit [...] see Dr Marilyn Amaya 08[facility]26[facility] 10:14:45 Problem Notes None recorded. Procedures Surgical History Date Name Laterality Status Provider Name and Address Organization Details Recorded Time 01/06/2024 NAIL/Callu sDEBRIDEME NT completed GEORGIANA REESE, DPLeo [address] [place], [address], [facility] 01/06/2024 20:38:14 Imaging Results None recorded. Procedure Notes None recorded. Medical Equipment None Reported. Allergies Allergen ID Allergen Name Allergen Category Reaction Reaction Severity Criticality Documentation Date Start Date Code Code System Note Provider Name and Address Organization Details Recorded Time avocado allergeni c extract food Not available Not available Not available 01/16/2024 31980 2 RxNorm Kylie Jessica null, [facility] 11:06:32 87868 ibuprofen medicatio n Not available Not available Not available 01/16/2024 5640 RxNorm Kylie Jessica null, [facility] 11:06:41 70061 clavulani c acid Not available Not available Not available Not available 01/16/2024 62846 RxNorm Kylie Jessica null, [facility] 11:06:49 51039 doxycycli ne Not available Not available Not available Not available 01/16/2024 3640 RxNorm Kylie Jessica null, [facility] 4 11:06:58 97797 lorazepam medicatio n Not available Not available Not available 01/16/2024 6470 RxNorm Kylie [place]rd, [place] - [facility] 4 11:07:07 77621 morphine medicatio n Not available Not available Not available 01/16/2024 7052 RxNorm Kylie [place]rd, [place] - [facility] 4 11:07:15 48544 Medicinal product containin g penicilli n and acting as antibacte rial agent (product) medicatio n Not available Not available Not available 01/16/2024 95156 05 SNOMED Kylie [place]rd, [place] - [facility] 11:07:22 [...] active Not Available Not Available Not Available [id number]-[id number] sg-K0-Lo-Cu- brett active Not Available Not Available Not Available Vitals None Recorded Social History None recorded. Functional Status None recorded. Mental Status None recorded. Family History Nothing Reported. Medical History No medical history recorded. Gynecological HistoryNo gynecological history recorded. Obstetrics History GPAL:G 0 P 0 0 0 0 Past Encounters Encounter ID Performer Location Encounter Start Date Encounter Closed Date Diagnosis/Indication Diagnosis SNOMED-CT Code Diagnosis ICD10 Code [id number] ANTONIA CASTRO [address] [facility] [place] [address] 02/24/2024 11:37:41 02/25/2024 15:21:46 Onychomycosis 191620088 B35.1 Pain of to e of left foot 6166906975 55951 M79.675 Pain of to e of right foot 3457953753 83255 M79.674 Peripheral vascular disease 362994953 I73.89 Peripheral neuropathy due to type 2 diabetes mellitus 3161531288 107 E11.42 Lymphedema of bilateral lower limbs 8580661468 1732603 I89.0 Health Concerns Section Related Observation LastModified by Organization Detai ls LastModified Time None Recorded Concern Status LastModified by Organization Details LastModified Time None Recorded Payers Encounter Date Sequence Insurance Name Policy Number Policy Mckay Covered Member ID Mckay Member ID Guarantor Name 02/24/2024 1 [place] [id number] [employer] [id number] [employer] 02/24/2024 1 [place] [employer] Rochelle SmartMenuCardManish [id number] [employer] Notes Date Note Type Note Provider Name and Address Organization Details Recorded Time 02/24/2024 text/html The patient presents today for [...] Dr. Donnelly in August of 2023. GEORGIANA REESE, ANTONIA [address] [place], [address], [place] - [facility] 02/25/2024 12:11:52 OBGyn Episode No OBEpisode recorded.
--- OUTSIDE RECORDS SUMMARY | 2024-03-30 12:29 | XMS_ITS | Continuity of Care Document ---
Author Organization [place] - [facility], [place] Address [address] [facility] [place] [address] Assessment Encounter Date Assessment Date Assessment LastModified by Organization Details LastModified Time 03/16/2024 03/16/2024 Discussed medical conditions with patient [...] the above treatment plan. [email or web address] Not available 03/16/2024 14:52:05 Plan of Treatment [...] [address] Marilyn Amaya 08/26/23 [place] - [facility] 10:14:45 Problem Notes None recorded. Procedures Surgical History Date Name Laterality Status Provider Name and Address Organization Details Recorded Time 01/06/2024 NAIL/Callu sDEBRIDEME NT completed GEORGIANA REESE, DPM [address] [place], [address], [place] - [facility] 01/06/2024 20:38:14 Imaging Results None recorded. Procedure Notes None recorded. Medical Equipment None Reported. Allergies Allergen ID Allergen Name Allergen Category Reaction Reaction Severity Criticality Documentation Date Start Date Code Code System Note Provider Name and Address Organization Details Recorded Time avocado allergeni c extract food Not available Not available Not available 01/16/2024 82965 2 RxNorm Kylie Jessica null, [place] - [facility] 11:06:32 50958 ibuprofen medicatio n Not available Not available Not available 01/16/2024 5640 RxNorm Kylie Jessica null, [place] - [facility] 11:06:41 65589 clavulani c acid Not available Not available Not available Not available 01/16/2024 41545 RxNorm Kylie Jessica null, [place] - [facility] 11:06:49 05499 doxycycli ne Not available Not available Not available Not available 01/16/2024 3640 RxNorm Kylie Jessica null, [place] - [facility] 11:06:58 79652 lorazepam medicatio n Not available Not available Not available 01/16/2024 6470 RxNorm Kylie Jessica null, [place] - [facility] 11:07:07 31004 morphine medicatio n Not available Not available Not available 01/16/2024 7052 RxNorm Kylie Jessica null, [place] - [facility] 4 11:07:15 28506 Medicinal product containin g penicilli n and acting as antibacte rial agent (product) medicatio n Not available Not available Not available 01/16/2024 57098 05 SNOMED Kylie Jessica null, [place] - [facility] [...] active Not Available Not Available Not Available [id number]-T0-tfpk cc-G5-Nr-Cu- brett active Not Available Not Available Not [...] Diagnosis/Indication Diagnosis SNOMED-CT Code Diagnosis ICD10 Code [id number] GE[facility]IANA [facility]ESE[facility]IA [facility] [address] [place] [address] 02/24/2024 11:37:41 02/25/2024 15:21:46 Onychomycosis 099255347 B35.1 Pain of to e of left foot 9951193681 93929 M79.675 Pain of to e of right foot 1088705699 91094 M79.674 Peripheral vascular disease 140630073 I73.89 Peripheral neuropathy due to type 2 diabetes mellitus 0712316260 107 E11.42 Lymphedema of bilateral lower limbs 7232121155 9263661 I89.0 GEORGIANA TANANTONIA PARSON [facility] [address] [place] [address] 03/16/2024 12:03:11 03/17/2024 11:16:46 Onychomycosis 280317596 B35.1 Pain of to e of left foot 9956899336 72240 M79.675 Pain of to e of right foot 5551005784 94450 M79.674 Peripheral vascular disease 872369240 I73.89 Peripheral neuropathy due to type 2 diabetes mellitus 2881012390 107 E11.42 Lymphedema of bilateral lower limbs 2067987827 4829266 I89.0 Health Concerns Section Related Observation LastModified by Organization Detai ls LastModified Time None Recorded Concern Status LastModified by Organization Details LastModified Time None Recorded Payers Encounter Date Sequence Insurance Name Policy Number Policy Mckay Covered Member ID Mckay Member ID Guarantor Name 03/16/2024 1 [place]MED[place]PLACEMENT HMO) [id number] [employer] [id number] [employer] Notes Date Note Type Note Provider Name and Address Organization Details Recorded Time 03/16/2024 text/html The patient presents today for [...] The patient expresses a need for comfortable, hjti-et-vzir shoes that do not require bending over [...] August of 2023. GEORGIANA REESE DPM [address] [place], [address], [facility] - [facility] 03/16/2024 14:52:31 OBGyn Episode No OBEpisode recorded.
--- OUTSIDE RECORDS SUMMARY | 2024-03-30 12:30 | XMS_ITS | Continuity of Care Document ---
Author Organization [place] - [facility], [place] Address [address] [place] [address] Assessment Encounter Date Assessment Date Assessment LastModified [...] and the need for the best accommodation. [email or web address] Not available 01/06/2024 20:40:48 Plan of Treatment Reminders Order Date Submit [...] [email or web address] NT completed GEORGIANA REESE, DPM [address] [place], [address], [facility] - [facility] 01/06/2024 20:38:14 Imaging Results None recorded. Procedure Notes None recorded. Medical Equipment None Reported. Allergies Allergen ID Allergen Name Allergen Category Reaction Reaction Severity Criticality Documentation Date Start Date Code Code System Note Provider Name and Address Organization Details Recorded Time avocado allergeni c extract food Not available Not available Not available 01/16/2024 62109 2 RxNorm Kylie Jessica null, [place] - [facility] 11:06:32 23226 ibuprofen medicatio n Not available Not available Not available 01/16/2024 5640 RxNorm Kylie Jessica null, [place] - [facility] 11:06:41 28614 clavulani c acid Not available Not available Not available Not available 01/16/2024 01564 RxNorm Kylie Jessica null, [place] - [facility] 11:06:49 19156 doxycycli ne Not available Not available Not available Not available 01/16/2024 3640 RxNorm Kylie Jessica null, [place] - [facility] 11:06:58 23142 lorazepam medicatio n Not available Not available Not available 01/16/2024 6470 RxNorm Kylie Jessica null, [place] - [facility] 4 11:07:07 02307 morphine medicatio n Not available Not available Not available 01/16/2024 7052 RxNorm Kylie byrd [place] - [facility] 11:07:15 75072 Medicinal product containin g penicilli n and acting as antibacte rial agent (product) medicatio n Not available Not available Not available 01/16/2024 73715 05 SNOMED Kylie byrd [place] - [facility] 11:07:22 [...] active Not Available Not Available Not Available [id number] [id number] active Not Available Not Available Not Available Vitals Date Recorded Body height Body mass index (BMI) Body weight Provider Name and Address Organization Details Last Updated DateTime 01/06/2024 165.1 cm 35.1 kg/m2 07962.99 shilo Lopez [place] - [facility] 01/16/2024 11:06:20 Social History None recorded. Functional Status None recorded. Mental Status None recorded. Family History Nothing Reported. Medical History No medical history recorded. Gynecological HistoryNo gynecological history recorded. Obstetrics History GPAL:G 0 P 0 0 0 0 Past Encounters Encounter ID Performer Location Encounter Start Date Encounter Closed Date Diagnosis/Indication Diagnosis SNOMED-CT Code Diagnosis ICD10 Code [id number] GEORGIANA REESE DPM [facility] d [address] [place] [address] 01/06/2024 09:57:06 01/07/2024 09:31:18 Onychomycosis 322040727 B35.1 Pain of to e of left foot 7611809302 71427 M79.675 Pain of to e of right foot 3838932275 18600 M79.674 Peripheral vascular disease 131210768 I73.89 Peripheral neuropathy due to type 2 diabetes mellitus 0866870134 107 E11.42 Lymphedema of bilateral lower limbs 9160985411 5494230 I89.0 Health Concerns Section Related Observation LastModified by Organization Detai ls LastModified Time None Recorded Concern Status LastModified by Organization Details LastModified Time None Recorded Payers Encounter Date Sequence Insurance Name Policy Number Policy Mckay Covered Member ID Mckay Member ID Guarantor Name 01/06/2024 1 [place] [id number] [employer] [id number] Rochelle Manish Notes Date Note Type Note [...] August of 2023. GEORGIANA REESE DPM [address] [place], [address], [facility] - [facility] 01/06/2024 20:42:31 OBGyn Episode No OBEpisode recorded.
--- NOTE | 2024-03-30 17:06 | OT.OPLDN ---
OT Outpatient Lymphedema Daily Note OT Outpatient Lymphedema Daily Note Start: 02/20/23 10:07 Freq: Status: Active Protocol: Document 03/30/24 16:22 LCN (Rec: 03/30/24 16:45 LCN [id number]) E-signed By Nieves Caballero, OTR/L, CLT OT OP Lymphedema Daily/Progress Note Note Type Note Type Daily Visit Number [id number] Insurance Information Insurance Information Medicare B Current Condition/Medical Diagnosis Referring Provider Dr. Alanna Amaya Treatment Diagnosis Venous Insufficency, B LE lymphedema. Date Of Onset 01/29/23 Other Precautions Has several allergies--avocado , ibuprofen, clavulanic acid, lorazepam, PCN and sulfa abx. Possible latex sensitivity. Medical Contraindications DM,HTN,CA Subjective Subjective Pt feels good about adding pump to her HEP, using daily over her liner socks, doffs her velcro wraps. Tehn uses stocking aide to remove stockings and takes shower. Has family come and help her re-yennifer wraps and R lower ankle dressing. Velcro ankle/ foot wraps are not fitting in most of her shoes; gets her new diabetic shoes/resized this week. Pt's skin is improving for R LE, no drainage on bandage from yesterday, light/medium pink, no heat. Had two days in a row, mild drainage 3 days ago. Cont with larger flaking, rough texture, hyper plasia for upper 3/4 of R weiner and ankle/foot as the skin heals. Using mostly renew cream since she is watching the spice blends/nightshades, using Bendryll much less. Rochelle Hammond is a vibrant 87 y/o female who struggles with venous, B LE lymphedema over the past 5 years and has now had 2nd bout of cellulitis last month, first was in October. Both treated with ABX ( October 3 shots, rocephin; just finished 10 day oral course). She is still having deep red color, mild healing warmth from R ankle fold to 2 cm below knee crease. Has open anterior weiner 15 cm wide x 22 cm high area with serous sanguineous drainage that drains into her shoe and is hard to manage. She has done several failed trials of OTC compression stockings ( knee high, zipper stocking both dig in and top margin/trap edema with hard red ring, a compression device off of [employer] that positioned her is a hard 90 degree ankle position) and is living alone with back pain, limiting her ablility to yennifer shoes/socks. Circumferential Measurements Lower Extremity Left Lower Extremity Great Toe 8.3 MPT 21.7 Arch 20.8 Calcaneous 30.3 10cm 23.5 20cm 31 30cm 38 40cm 38.7 50cm 46.4 60cm 50.5 Total 309.2 Right Lower Extremity Great Toe 9.0 MPT 22.5 Arch 22.3 Calcaneous 32.3 10cm 25.3 20cm 30.3 30cm 37 40cm 37.5 50cm 50.0 60cm 56.0 Total 322.2 Treatment Manual Therapy OTR completes MLD sequence (as needed for increased tissue mobility, ROM and decreased lymph girth) with LN facilitation at TDL, terminus, suboccipital to SCM lines, with lymph sweeping distal to proximal x 5-7 strokes each plane, with 2-3 sets at congested areas. Cont LN facilitation at abd with diaphragmatic breath, 4 abd quadrants, beltline, lateral trunk and ING > AX?to support watershed flow. Segmental decongestive MLD at lateral hip,?lateral thigh bundles, middle thigh, TFL to lateral trunk and calf in 3 segments, foot and ankle areas with toe web space facilitation, x 10 reps each area. MFR to spongy medial knee areas. Applied pt 's Renew lotion to B LE's/ below knee medium pink/neutral warm areas. Velcro wraps and Tetragrip H, ankle to knee and tetragrip F for foot ankle over the dressing at malleolus. Narrow silicone tube to R 2nd toe. Discussed doing more abdominal /inguinal MLD at start of her pumping HEP, trunk is feeling more feels as the legs improve ( using thigh sleeves on her pump for B LE). OTR issues more layers of Tetragrip size G and E as liners. with info to re-order if needed. Manual Therapy Minutes (minutes) 55 Therapeutic Exercise Minutes (minutes) 5 Therapeutic Activities 03/02/24-- Checking wrap sizes and shoe compatibility with her new ankle/foot pieces. SO far, only her slippers work with it. OTR recommends she wear R ankle pieces to help support her healing ( needs to wash dye out first, is so sensitive) 01/22/24-- OTR consults with fitter and pt to for fitting compression layers ( Thigh high flat knit Short soft thigh high R and knee high on L for day plan, open toes.) OTR instructs pt in use of adaptive EZ slide to yennifer flat knits and tips given for keeping R ankle dressing in place. Pt with many skin sensitivities (Latex, adhesives is hard) and toe / nail issues, so open toe is better. Pt to continue with same brand of velcro compression wraps Sigvaris wrap with 15-25 mmHG liner socks for night time. Therapeutic Activity Minutes (minutes) 30 Recommended Medical Equipment Compression Planning for Upgrades 11/25/23-- considering custom flat knits ( R thigh high and L knee high) with antimicrobial, wicking layer for day plan and velcro wrap for night plan. Consider adding pump at another point. Sigvaris Med Tall Blow knee Velcro compression wraps for B LE with 10-15 mmHG liner socks. 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 For the past 4+ months, pt continues with good compliance for elevating feet 2 hours per day,daily compression wear of wrap layers, with dressing changes and completes her self massage and pumping exercise routine 1-2 x/day. Despite this, she has continued skin changes hyper plasia, dry flaking skin thin intermittent lymphorrhea, redness and mild healing wearm , extremely sensitive to changes of cream or diet/ stopping tomtoesand night shades. Planning to decrease frequency to 2x/month now for next 6-8 weeks. Working on strategies for being more (I) with compression mgmt. Pt with Impaired integrity of skin & lymphedema lead to increased risk infection & skin breakdown.?Pt c/o decreased mobility of BLE d/t bulk of swelling in legs and impaired fit of appropriate footwear. Legs are heavy, hard to feel where feet are, limited standing tolerance, hard to get shoes, socks on safely.?Wound is draining into her R shoe. Impairments Loss of Mobility,Difficulties With ADLs,Limb Heaviness,Poor Clothing Fit Impairments Comments Poor tolerance of traditional compression stockings. Problem List Significant Risk For Infection For Lymphedema Related Complications,Does Not Have Appropriate Compression Garments For LT Management, Presents With Impaired Mobility/ROM,Lack Of Caregiver Support Patient Goals Short Term Goals (# of Weeks) 6 Short Term Goals Goal 1: Patient and or caregiver will understand lymphedema precautions to decrease risk of infection and further lymphedema related complications Goal 2: Patient will develop a tolerance for wearing multi-layer, short stretch bandages between treatment sessions to facilitate limb decongestion Goal 3: Patient will experience decreased pitting edema in order to improve tissue health and decrease risk for infection/cellulitis Goal 4: Patient will perform HEP with minimal assistance in order to improve lymphatic flow and venous return Goal 5 : Patient will perform self MLD protocol with minimal assistance to help reduce swelling and improve ROM and mobility Short Term Goals Comments BROOKS PUGA MET 08/28/23 [facility] Goals (# of Weeks) 12 [facility] Goals Goal 1: Patient and/or caregiver will be independent with short-stretch compression bandaging for continued volume reduction and prevention of recurrence PROGRESS-- Granddaughter, friend helping with dressings /compression changes daily. Adding adaptive equipment for pt (I) as next portion of goal . Goal 2: Patient will experience increased ROM and mobility in order to improve safety and independence with transfers and mobility 08/28/23 PROGRESS-- GOAL MET Goal 3: Patient will be independent with donning and doffing of compression garments which will enable regular daily garment wear PROGRESS-- Goal continued, working on adaptive equipment use and weaning down to more manageable compression layers as able ( considering custom flat knits with antimicrobial, wicking layer for day plan and velcro wrap for night plan. Goal 4: Patient will achieve a specific reduction of 15cm from total measurements for each LE to enable functional improvements such as fitting into standard sized clothing and shoes, return to a prior level of functional mobility, improved balance, and reduced risk of falling. 11/24 PROGRESS-- Since initial eval 03/02/23 L LE total has reduced by 46.5 cm and R LE reduced by 52.1 cm. Skin integrity of R LE continues to improve, but still having dermatitis/pink/redness, microflaking for entire R weiner . Scant drainage on medial ankle dressing ( had been circumferential wound at start of OT) Goal 5: Patient and/or caregiver will be independent with HEP and lymphedema management to reduce risk for edema relapse and to reduce risk for infection 11/25/23-- Continued for updates as pt progresses, progressing complression layers and considering a pump when pt feels ready. Treatment Plan Treatment Plan Evaluation,Edema Control, Manual Therapy,Therapeutic Exercise,Self-Care/Home Management,Education Expected Frequency 1-2x Week Expected Duration 8-10 Weeks Treatment Minutes Timed Treatment Minutes 55 Total Timed Treatment Minutes 55 Occupational Therapy Billing Units Billing Units Manual Therapy 4 Therapeutic Activities 0 Recertification Information Recertification Information Initial Certification Date 02/20/23 Recertification Start Date 11/25/23 Recertification Due Date 02/24/24 Reasons to Continue Skilled Therapy Moving towards (I) with donning compression, progressing compression plan, using adaptive equipment and resolved skin integrity, skin hypersensitivity issues of R LE. Continued Plan of Care and Interventions Per goals/progress above Provider Signature Shows Agreement With POC & Medical Necessity Physician Comment/Change Comment or Changes Physician NPI Number #
--- NOTE | 2024-05-11 17:17 | OT.OPLDN ---
OT Outpatient Lymphedema Daily Note OT Outpatient Lymphedema Daily Note Start: 02/20/23 10:07 Freq: Status: Active Protocol: Document 05/11/24 16:49 LCN (Rec: 05/11/24 17:16 SHOSHANAN [id number]) E-signed By Nieves Caballero, OTR/L, CLT OT OP Lymphedema Daily/Progress Note Note Type Note Type Daily,Discharge Note,Note To MD Visit Number 40 Insurance Information Insurance Information Medicare B Current Condition/Medical Diagnosis Referring Provider Dr. Alanna Amaya Treatment Diagnosis Venous Insufficency, B LE lymphedema. Date Of Onset 01/29/23 Other Precautions Has several allergies--avocado , ibuprofen, clavulanic acid, lorazepam, PCN and sulfa abx. Possible latex sensitivity. Medical Contraindications DM,HTN,CA Subjective Subjective Rochelle feels good about adding pump to her HEP, using daily over her liner socks, doffs her velcro wraps. Able to use stocking aide to remove stockings and takes shower. Has family/retired RN friend come and help her re-yennifer wraps and R lower ankle dressing. Velcro ankle/foot wraps are now fitting with her velcro/elastic tennis slip ons. Pt's skin is improving for R LE, has 2-3d/week where she has dots of drainage on bandage that is changed daily; other days dry. Skin of R below knee to ankle, shaggy dry scaley texture with light/ medium pink color, mild heat; no streaking or pain. Has been this way for the past 12 months ( blistering open at start of OT February 2023, reduced to scant dots drainage Apr 2023, relatively stable since then) . Using mostly Renew cream ( very sensitive to latex, silicone, creams, all through time per patient report). Has been hesitant to try dermatology consult on her skin per her sensitivities and wanting to revert back to having R leg open up again. Very occasionally uses Benadryl cream if R LE is irritated itching more. FROM 02/29/24 eval--Rochelle Hammond is a vibrant 87 y/o female who struggles with venous, B LE lymphedema over the past 5 years and has now had 2nd bout of cellulitis last month, first was in October. Both treated with ABX ( Randi 3 shots, rocephin; just finished 10 day oral course). She is still having deep red color, mild healing warmth from R ankle fold to 2 cm below knee crease. Has open anterior weiner 15 cm wide x 22 cm high area with serous sanguineous drainage that drains into her shoe and is hard to manage. She has done several failed trials of OTC compression stockings ( knee high, zipper stocking both dig in and top margin/trap edema with hard red ring, a compression device off of Bemba that positioned her is a hard 90 degree ankle position) and is living alone with back pain, limiting her ablility to yennifer shoes/socks. Circumferential Measurements Lower Extremity Left Lower Extremity Great Toe 8.3 MPT 22 Arch 20.9 Calcaneous 31.5 10cm 23.3 20cm 31 30cm 39 40cm 38.5 50cm 48.5 60cm 50.5 Total 313.5 Right Lower Extremity Great Toe 8.4 MPT 22.5 Arch 21.7 Calcaneous 32.0 10cm 25.0 20cm 32.3 30cm 38.5 40cm 41.5 50cm 49.5 60cm 56.0 Total 327.4 Treatment Manual Therapy OTR remeasures, reviews current HEP and goal progress. Pt agrees she is appropriate for d.c. fom OT. OTR completes MLD sequence (as needed for increased tissue mobility, ROM and decreased lymph girth) with LN facilitation at TDL, terminus, suboccipital to SCM lines, with lymph sweeping distal to proximal x 5-7 strokes each plane, with 2-3 sets at congested areas. Cont LN facilitation at abd with diaphragmatic breath, 4 abd quadrants, beltline, lateral trunk and ING > AX?to support watershed flow. Segmental decongestive MLD at lateral hip,?lateral thigh bundles, middle thigh, TFL to lateral trunk and calf in 3 segments, foot and ankle areas with toe web space facilitation, x 10 reps each area. MFR to spongy medial knee areas. Applied pt 's Renew lotion to B LE's/ R LE below knee medium pink/ neutral warm areas. Velcro wraps and Tetragrip H, ankle to knee and tetragrip F for foot ankle over the dressing at malleolus. Narrow silicone tube to R 2nd toe. Discussed doing more abdominal /inguinal MLD at start of her pumping HEP, trunk is feeling more feels as the legs improve ( using thigh sleeves on her pump for B LE). Manual Therapy Minutes (minutes) 58 Therapeutic Activities 03/02/24-- Checking wrap sizes and shoe compatibility with her new ankle/foot pieces. SO far, only her slippers work with it. OTR recommends she wear R ankle pieces to help support her healing ( needs to wash dye out first, is so sensitive) 01/22/24-- OTR consults with fitter and pt to for fitting compression layers ( Thigh high flat knit Short soft thigh high R and knee high on L for day plan, open toes.) OTR instructs pt in use of adaptive EZ slide to yennifer flat knits and tips given for keeping R ankle dressing in place. Pt with many skin sensitivities (Latex, adhesives is hard) and toe / nail issues, so open toe is better. Pt to continue with same brand of velcro compression wraps Sigvaris wrap with 15-25 mmHG liner socks for night time. Therapeutic Activity Minutes (minutes) 30 Recommended Medical Equipment Compression Planning for Upgrades 11/25/23-- considering custom flat knits ( R thigh high and L knee high) with antimicrobial, wicking layer for day plan and velcro wrap for night plan. Consider adding pump at another point. Sigvaris Med Tall Blow knee Velcro compression wraps for B LE with 10-15 mmHG liner socks. 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 For the past 4+ months, pt continues with good compliance for elevating feet 2 hours per day,daily compression wear of wrap layers, with dressing changes and completes her self massage and pumping exercise routine 1-2 x/day. Despite this, she has continued skin changes hyper plasia, dry flaking skin thin intermittent lymphorrhea, redness and mild healing wearm , extremely sensitive to changes of cream or diet/ stopping tomtoesand night shades. Planning to decrease frequency to 2x/month now for next 6-8 weeks. Working on strategies for being more (I) with compression mgmt. Pt with Impaired integrity of skin & lymphedema lead to increased risk infection & skin breakdown.?Pt c/o decreased mobility of BLE d/t bulk of swelling in legs and impaired fit of appropriate footwear. Legs are heavy, hard to feel where feet are, limited standing tolerance, hard to get shoes, socks on safely.?Wound is draining into her R shoe. Impairments Loss of Mobility,Difficulties With ADLs,Limb Heaviness,Poor Clothing Fit Impairments Comments Poor tolerance of traditional compression stockings. Problem List Significant Risk For Infection For Lymphedema Related Complications,Does Not Have Appropriate Compression Garments For LT Management, Presents With Impaired Mobility/ROM,Lack Of Caregiver Support Patient Goals Short Term Goals (# of Weeks) 6 Short Term Goals Goal 1: Patient and or caregiver will understand lymphedema precautions to decrease risk of infection and further lymphedema related complications Goal 2: Patient will develop a tolerance for wearing multi-layer, short stretch bandages between treatment sessions to facilitate limb decongestion Goal 3: Patient will experience decreased pitting edema in order to improve tissue health and decrease risk for infection/cellulitis Goal 4: Patient will perform HEP with minimal assistance in order to improve lymphatic flow and venous return Goal 5 : Patient will perform self MLD protocol with minimal assistance to help reduce swelling and improve ROM and mobility Short Term Goals Comments STG GOALS MET 08/28/23 Nursing Home Goals (# of Weeks) 12 Billet Grinder Goals Goal 1: Patient and/or caregiver will be independent with short-stretch compression bandaging for continued volume reduction and prevention of recurrence PROGRESS-- Granddaughter, friend helping with dressings /compression changes daily. Pt able to self doff layers, but even using the donning devices does not work over the ankle dressing she is still needing to use. Pt plans to rely on help for re- donning wraps and dressing change, but she is independet for doffing, bathing and pump use. Goal 2: Patient will experience increased ROM and mobility in order to improve safety and independence with transfers and mobility 08/28/23 PROGRESS-- GOAL MET Goal 3: Patient will be independent with donning and doffing of compression garments which will enable regular daily garment wear 05/11 PROGRESS-- Goal cper LTG goal #1. Goal 4: Patient will achieve a specific reduction of 15cm from total measurements for each LE to enable functional improvements such as fitting into standard sized clothing and shoes, return to a prior level of functional mobility, improved balance, and reduced risk of falling. 05/11/24 PROGRESS-- Since initial eval 03/02/23 L LE total has reduced by 43.2cm and R LE reduced by 48.5 cm. Skin integrity of R LE continues to improve, but still having dermatitis/pink/redness, microflaking for entire R weiner . Scant drainage on medial ankle dressing ( had been circumferential wound at start of OT) Goal 5: Patient and/or caregiver will be independent with HEP and lymphedema management to reduce risk for edema relapse and to reduce risk for infection 11/25/23-- Continued for updates as pt progresses, progressing complression layers and considering a pump when pt feels ready. Treatment Plan Treatment Plan Evaluation,Edema Control, Manual Therapy,Therapeutic Exercise,Self-Care/Home Management,Education Expected Frequency 1-2x Week Expected Duration 8-10 Weeks Treatment Minutes Timed Treatment Minutes 58 Total Timed Treatment Minutes 58 Occupational Therapy Billing Units Billing Units Manual Therapy 4 Therapeutic Activities 0 Recertification Information Recertification Information Initial Certification Date 02/20/23 Recertification Start Date 03/02/24 Recertification Due Date 06/01/24 Reasons to Continue Skilled Therapy Moving towards (I) with donning compression, progressing compression plan, using adaptive equipment and resolved skin integrity, skin hypersensitivity issues of R LE. Continued Plan of Care and Interventions Per goals/progress above Provider Signature Shows Agreement With POC & Medical Necessity Physician Comment/Change Comment or Changes Physician NPI Number # Discharge Note Discharge Note Discharge Summary Per goal progress above. 40 visits of OT. Date of First Visit for Therapy 03/02/24 Date of Last Visit for Therapy 05/11/24 Initial Primary Functional Limitations/ FROM 02/29/24 eval--Rochelle Hammond is a vibrant 87 y/o female who struggles with venous, B LE lymphedema over the past 5 years and has now had 2nd bout of cellulitis last month, first was in October. Both treated with ABX ( October 3 shots, rocephin; just finished 10 day oral course). She is still having deep red color, mild healing warmth from R ankle fold to 2 cm below knee crease. Has open anterior weienr 15 cm wide x 22 cm high area with serous sanguineous drainage that drains into her shoe and is hard to manage. She has done several failed trials of OTC compression stockings ( knee high, zipper stocking both dig in and top margin/trap edema with hard red ring, a compression device off of Bemba that positioned her is a hard 90 degree ankle position) and is living alone with back pain, limiting her ablility to yennifer shoes/socks. Interventions Provided During Treatment Manual Therapy,Therapeutic Exercise,Self Care/Home Management Interventions Provided During Treatment wound care Comments Recommendations/Reason for Discharge Met All Therapy Goals,Progress Reached Plateau Discharge Instructions Excellent home program compliance. Would benefit from further consult on her skin status of Eugenio CONN
== END 2024-05-12 07:40 | disposition home or self-care (01) ==
PROVIDERS: PCP Internal Medicine; Visit Provider Internal Medicine
DX: I87.8 Other specified disorders of veins (principal); Z51.89 Encounter for other specified aftercare
CPT/HCPCS: 97140; 97165; 97530; 97535

== ENCOUNTER 2024-09-10 08:16 | Outpatient (CLI) | payer MEDICARE, BC, SELFPAY | END 2024-09-10 08:17 | disposition home or self-care (01) | LOC: NFLDREF 09-12 04:12 | PROVIDERS: PCP Internal Medicine; Referring Provider Internal Medicine; Visit Provider Internal Medicine | DX: E11.29 Type 2 diabetes mellitus with other diabetic kidney complication (principal); R80.9 Proteinuria, unspecified; E78.5 Hyperlipidemia, unspecified; E66.9 Obesity, unspecified; I10 Essential (primary) hypertension | CPT/HCPCS: 80053; 80061; 82043; 82570 ==